=== PATIENT | male | born 1960 | race Caucasian/White ===

== ENCOUNTER 2018-07-20 21:00 | Emergency (ER) | payer BC ==
[2018-07-20] MEDS ORDERED: Ibuprofen TAB* 400 MG PO ONE (21:18)
--- NOTE | 2018-07-20 21:20 | ED ---
Upper Extremity Pain - HPI Summary HPI Summary: Pt is a 58 y/o male who presents to the ED s/p hand injury. He states he was carrying pails of water to his barn when he slipped on ice. Pt held out his left hand and most of his body weight fell on it. He had immediate pain to his left wrist and heard a snap. He denies any head injury, or shoulder or elbow pain. Pt is able to move his fingers and move his hand [id number], but has pain with flexion and extension. He rates the pain as 5/10 in severity. Pt denies any numbness or paresthesia. He has not taken any OTC medications or applied ice to the area. Pt is left-handed. He is accompanied by his . Pt denies the use of blood thinners. - History of Current Complaint Chief Complaint: EDExtremityUpper Stated Complaint: FALL/LT WRIST INJURY Time Seen by Provider: 07/20/18 21:18 Hx Obtained From: Patient Mechanism Of Injury: Fall From A Standing Position - slipped on ice Onset/Duration: Started Hours Ago - [employer], Still Present Timing: Constant Severity Currently: Moderate - 5/10 Pain Location: Wrist - left Aggravating Factor(s): Flexion, Extension Alleviating Factor(s): Nothing Associated Signs & Symptoms: Negative: Numbness/Tingling Related History: Dominant Hand Left - Allergies/Home Medications Allergies/Adverse Reactions: Allergies Allergy/AdvReac Type Severity Reaction Status Date / Time No Known Allergies Allergy Verified 07/20/18 21:07 Home Medications: Home Medications NK [No Home Medications Reported] 07/20/18 [History Confirmed 07/20/18] PMH/Surg Hx/FS Hx/Imm Hx Endocrine/Hematology History: Denies: Hx Diabetes Cardiovascular History: Denies: Hx Hypercholesterolemia, Hx Hypertension Infectious Disease History: No Infectious Disease History: Denies: Traveled Outside the [place] in Last 30 Days - Family History Known Family History: Negative: Cardiac Disease, Diabetes - Social History Alcohol Use: None Hx Substance Use: No Substance Use Type: Reports: None Hx Tobacco Use: No Smoking Status (MU): Never Smoked Tobacco Review of Systems Positive: Arthralgia - left wrist Negative: Paresthesia, Numbness All Other Systems Reviewed And Are Negative: Yes Physical Exam - Summary Physical Exam Summary: Appearance: Well appearing, no pain distress Skin: warm, dry, reflects adequate perfusion Head/face: normal Eyes: EOMI, JOSEPH ENT: mucous membranes moist Neck: supple, non-tender Respiratory: CTA, breath sounds present Cardiovascular: RRR, pulses symmetrical Abdomen: non-tender, soft Bowel Sounds: present Musculoskeletal: strength/ROM intact, no snuffbox tenderness, mild tenderness of dorsal distal left radius and ulna Neuro: normal, sensory motor intact, A&Ox3 Triage Information Reviewed: Yes Vital Signs On Initial Exam: Initial Vitals Temp Pulse Resp BP Pulse Ox 98.1 F 67 16 161/96 98 07/20/18 21:04 07/20/18 21:04 07/20/18 21:04 07/20/18 21:04 07/20/18 21:04 Vital Signs Reviewed: Yes Procedures - Splinting Left Upper Extremity Splint: sugar-tong Pre-Proc Neuro Vasc Exam: normal Post-Proc Neuro Vasc Exam: normal Diagnostics - Vital Signs Vital Signs Temp Pulse Resp BP Pulse Ox 07/20/18 21:04 98.1 F 67 16 161/96 98 - Laboratory Lab Statement: Any lab studies that have been ordered have been reviewed, and results considered in the medical decision making process. - Radiology Wrist XR Radiology Interpretation Completed By: ED Physician Summary of Radiographic Findings: Distal radius fracture minimally displaced with articular surface involvement. Pending official radiology report. Course/Dx - Course Course Of Treatment: Nurse's notes reviewed. Patient with minimally displaced distal radius fracture with articular involvement. Placed in sugar tong splint to follow-up with orthopedic hand. Neurovascular intact. Unaffected dominant left hand. - Diagnoses Differential Diagnosis/HQI/PQRI: Positive: Contusion, Fracture (Closed), Strain , Sprain Provider Diagnoses: Distal radius fracture Discharge - Sign-Out/Discharge Documenting (check all that apply): Patient Departure - Discharge - Discharge Plan Condition: Stable Disposition: HOME Patient Education Materials: Wrist Fracture in Adults (ED) Forms: *Work Release Referrals: Abiel Espinosa MD [Medical Doctor] - Additional Instructions: Ice, elevate at rest. Ibuprofen, Tylenol as needed for discomfort. Call orthopedist first thing in the morning to schedule prompt follow-up. Return if worse, new symptoms or other concerns. Nonweightbearing left wrist. - Billing Disposition and Condition Condition: STABLE Disposition: Home - Attestation Statements Document Initiated by Scribe: Yes Documenting Scribe: Belinda Che Provider For Whom Scribe is Documenting (Include Credential): Davis Mazariegos MD Scribe Attestation: I, Belinda Che, scribed for Davis Mazariegos MD on 07/21/18 at 0117. Scribe Documentation Reviewed: Yes Provider Attestation: The documentation as recorded by the mercyibeBelinda accurately reflects the service I personally performed and the decisions made by me, Davis Mazariegos MD Status of Scribe Document: Viewed
[2018-07-20] MEDS ORDERED: HYDROcodone/ACETAMIN 5-325 MG* 1 TAB PO ONE (22:11)
[2018-07-20 22:29] VITALS: BP 146/85
== END 2018-07-20 22:28 | disposition home or self-care (01) ==
LOC: ED 21:00
DX: S52.502A Unspecified fracture of the lower end of left radius, initial encounter for closed fracture (principal); W00.0XXA Fall on same level due to ice and snow, initial encounter; Y92.008 Other place in unspecified non-institutional (private) residence as the place of occurrence of the external cause
CPT/HCPCS: 99282; A9270-GY